=== PATIENT | male | born 1975 | race Caucasian/White ===

== ENCOUNTER 2020-12-09 10:59 | Emergency (ER) | payer OTHER ==
[2020-12-09 11:17] VITALS: PULSE 76
[2020-12-09] MEDS ORDERED: TORAdol 30 mg Injection ONE (11:32)
[2020-12-09] MEDS: TORAdol 30 mg Injection IM ONE (11:43)
--- NOTE | 2020-12-09 11:53 | XRAY ---
Indication: Pain following injury. Comparison: None 3 view left shoulder obtained. No bony, articular, or soft tissue abnormalities.
--- NOTE | 2020-12-09 12:11 | ERPHSYRPT ---
- History of Present Illness Time Seen by Provider: 12/09/20 11:09 Source: patient Exam Limitations: no limitations Patient Subjective Stated Complaint: " I hit my elbow and shoulder while trying to go under railing at work. My elbow and shoulder hurt and my fingers are ti ngly". Triage Nursing Assessment: Pt presents to ER with complaints of left elbow and left shoulder pain following a work-related injury at [employer]. He states he was trying to get away from some equipment (approx 2000lb equipment) that was malfunctioning and falling towards him. He states he try to escape by going under some railing but while doing that, he injuried his left shoulder and elbow. He has full ROM but does state he has some tingling to his left hand. Pt is alert and oriented x 3. Skin pink, warm, and dry. Pt able to ambulate without difficulty. Pt has no obvious deformity or injury. Respirations are unlabored at this time. Denies any other complaints other than pain in left shoulder and elbow. 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 Patient is complaining of pain in the left shoulder/upper arm with movements and palpation and better with being still. He has mild pain in the left elbow as he hit it against the ground but no difficulty movements or swelling. No swelling of shoulder joint. No injury anywhere else. Occurred: just prior to arrival Method of Injury: direct blow Quality: constant, sharpness Severity of Pain-Max: moderate Severity of Pain-Current: moderate Extremities Pain Location: shoulder: left, arm: left, elbow: left Modifying Factors: Improves With: immobilization. Worsens With: movement Associated Symptoms: none Allergies/Adverse Reactions: codeine Allergy (Intermediate, Verified 12/09/20 11:17) Nausea and Vomiting hydrocodone Allergy (Intermediate, Verified 12/09/20 11:17) Nausea and Vomiting Hx Tetanus, Diphtheria Vaccination/Date Given: No Hx Influenza Vaccination/Date Given: No Hx Pneumococcal Vaccination/Date Given: No Immunizations Up to Date: No Travel Risk - International Travel Have you traveled outside of the country in past 3 weeks: No - Coronavirus Screening Are you exhibiting any of the following symptoms?: No Close contact with a COVID-19 positive Pt in past 14-21 Days: No - Vaccine Status Have you recieved a Covid-19 vaccination: No - Review of Systems Constitutional: No Symptoms Eyes: No Symptoms Ears, Nose, & Throat: No Symptoms Respiratory: No Symptoms Cardiac: No Symptoms Abdominal/Gastrointestinal: No Symptoms Genitourinary Symptoms: No Symptoms Musculoskeletal: Injury, Joint Pain Skin: No Symptoms Neurological: No Symptoms Psychological: No Symptoms Endocrine: No Symptoms Hematologic/Lymphatic: No Symptoms Immunological/Allergic: No Symptoms - Past Medical History Pertinent Past Medical History: Yes GI Medical History: Ulcer Other Medical History: acute kidney injury r/t dehydration - Past Surgical History Past Surgical History: Yes Musculoskeletal: Orthopedic Surgery Other Surgical History: R leg, and surgery for ulcers, urinary stricture surgery - Social History Smoking Status: Never smoker Exposure to second hand smoke: No Drug Use: none Patient Lives Alone: No - Nursing Vital Signs Nursing Vital Signs: Initial Vital Signs Temperature 97.9 F 12/09/20 11:09 Pulse Rate 76 12/09/20 11:09 Respiratory Rate 16 12/09/20 11:09 Blood Pressure 139/89 12/09/20 11:09 O2 Sat by Pulse Oximetry 99 12/09/20 11:09 Pain Scale Pain Intensity 8 - Physical Exam General Appearance: no apparent distress, alert Eyes, Ears, Nose, Throat Exam: normal ENT inspection Neck Exam: normal inspection, supple, full range of motion Cardiovascular/Respiratory Exam: chest non-tender, normal breath sounds, regular rate/rhythm Abdominal Exam: non-tender, soft Back Exam: normal inspection, normal range of motion, No CVA tenderness Shoulder Exam: normal inspection, normal ROM, soft tissue tenderness (Left upper shoulder deltoid area), No bone tenderness Elbow/Forearm Exam: normal inspection, non-tender, no evidence of injury Wrist Exam: normal inspection, non-tender Hand Exam: normal inspection, non-tender, no evidence of injury, normal ROM Neuro/Tendon Exam: normal sensation, normal motor functions, normal tendon functions Mental Status Exam: alert, oriented x 3, cooperative Skin Exam: normal color SpO2 Interpretation: normal SpO2: 99 O2 Delivery: Room Air Ordered Tests: Active Orders 24 hr Category Date Time Status SHOULDER Stat Exams 12/09/20 11:41 Completed Medication Summary Discontinued Medications Generic Name Dose Route Start Last Admin Trade Name Freq PRN Reason Stop Dose Admin Ketorolac Tromethamine 30 mg 12/09/20 11:29 12/09/20 11:43 Toradol 30 Mg Injection IM 12/09/20 11:30 30 mg STAT ONE Administration Ketorolac Tromethamine Confirm 12/09/20 11:32 Toradol 30 Mg Injection Administered 12/09/20 11:33 Dose 30 mg .ROUTE .STK-MED ONE - Progress Progress: improved, re-examined Progress Note: 12/09/20 I believe patient has soft tissue/ligamentous strain, given Toradol, on reevaluation feeling better. We will continue with NSAIDs to go home and outpatient follow-up with primary care and if do not see any improvement after 10 days need evaluation with orthopedic surgery and may need MRI for further evaluation. Discussed signs symptoms of worsening needing return to ER which he seems understanding. Recommended avoiding exertional activity/heavy work. Counseled pt/family regarding: diagnosis, need for follow-up, rad results - Departure Departure Disposition: Home Clinical Impression: Strain of left shoulder Qualifiers: Encounter type: initial encounter Qualified Code(s): S46.912A - Strain of unspecified muscle, fascia and tendon at shoulder and upper arm level, left arm, initial encounter Condition: Stable Critical Care Time: No Referrals: DAVI LI MD [ACTIVE STAFF] - Follow Up with PCP/3 days Instructions: Shoulder Sprain (DC) Additional Instructions: Take Tylenol/ibuprofen as needed for pain. Avoid exertional activities/heavy work. Follow-up with primary care for reevaluation in the next 3 to 4 days. If do not see any improvement in 10 days needs evaluation by orthopedic surgery or MRI of the shoulder. Prescriptions: Ibuprofen 600 mg PO Q6HPRN PRN 10 Days #20 tablet PRN Reason: Pain
[2020-12-09 12:22] VITALS: BP 139/93; O2SAT 98
== END 2020-12-09 12:31 | disposition home or self-care (01) ==
LOC: ED 10:59
DX: S46.912A Strain of unspecified muscle, fascia and tendon at shoulder and upper arm level, left arm, initial encounter (principal); W22.8XXA Striking against or struck by other objects, initial encounter; Y93.89 Activity, other specified; Y92.89 Other specified places as the place of occurrence of the external cause; Y99.0 Civilian activity done for income or pay; M25.512 Pain in left shoulder; M25.522 Pain in left elbow
CPT/HCPCS: 73030; 96372; 99284; J1885